=== PATIENT | male | born 1980 | race Caucasian/White ===

== ENCOUNTER 2018-01-12 03:15 | Emergency (ER) | payer MEDICAID ==
[~2018-01-12] VITALS: Ht 185.4 cm; Wt 95.3 kg
[2018-01-12 03:20] VITALS: Ht 185.4 cm; Wt 95.3 kg
[2018-01-12] MEDS ORDERED: ZANTAC150 MG PO (03:21)
[2018-01-12 03:43] LABS: BASOPHILS 0.1 % (0-2); EOSINOPHILS 0.6 % (0-7); HEMATOCRIT 50.2 % (42.0-54.0); HEMOGLOBIN 17.6 g/dL (13.5-17.5); IMMATURE GRANULOCYTES 0.4 % (0-5); LYMPHOCYTES 6.6 % (15-50); MCH 33.2 pg (26.0-34.0); MCHC 35.1 g/dL (31.0-37.0); MCV 94.7 fL (80.0-100.0); MEAN PLATELET VOLUME 9.9 fL (7.4-10.4); MONOCYTES 4.9 % (2-11); NEUTROPHILS 87.4 % (40-80); PLATELET COUNT 211 10x3/uL (130-400); RDW 13.8 % (11.5-14.5); WBC 18.6 10x3/uL (4.8-10.8)
[2018-01-12 03:56] LABS: ALBUMIN 4.1 g/dL (3.4-5.0); ANION GAP 15.9 mmol/L (8-16); BILIRUBIN - TOTAL 1.2 mg/dL (0.2-1.3); CALCIUM 9.3 mg/dL (8.5-10.1); CARBON DIOXIDE 25.7 mmol/L (21.0-32.0); CREATININE - SERUM 1.4 mg/dL (0.6-1.3); POTASSIUM - SERUM 3.6 mmol/L (3.5-5.1); PROTEIN - SERUM 8.2 g/dL (6.4-8.2)
[2018-01-12] MEDS ORDERED: PHENERGAN25 M1 PO (04:43)
[2018-01-12 04:53] VITALS: BP 122/68
== END 2018-01-12 04:52 | disposition home or self-care (01) ==
LOC: D.ER 03:15
PROVIDERS: Emergency Medicine
DX: K52.89 Other specified noninfective gastroenteritis and colitis (principal); R19.7 Diarrhea, unspecified; F17.200 Nicotine dependence, unspecified, uncomplicated